=== PATIENT | female | born 1995 | race African-American/Black ===

== ENCOUNTER 2023-07-30 10:54 | Emergency (ER) | payer MEDICAID ==
[~2023-07-30] VITALS: Ht 167.6 cm; Wt 91.0 kg
[2023-07-30 11:09] VITALS: BP 123/75; PULSE 75; RESP 18; TEMP 98.2; O2SAT 100
[2023-07-30 12:06] LABS: BASOPHILS % 0.6 % (0.0-2.0); EOSINOPHILS % 1.5 % (0.0-5.0); HEMATOCRIT. 28.6 % (36.0-48.0); HEMOGLOBIN. 9.1 g/dL (12.0-16.0); LYMPHOCYTES % 26.5 % (20.0-50.0); MEAN CORPUSCULAR HEMOGLOBIN 26.3 pg (28.0-32.0); MEAN CORPUSCULAR VOLUME 82.3 fL (81.0-99.0); MEAN PLATELET VOLUME 8.7 fl (7.4-10.4); MONOCYTES % 6.9 % (2.0-8.0); NEUTROPHILS % 64.5 % (40.0-76.0); PLATELET 308 x1000/uL (130-400); RED BLOOD CELL COUNT 3.47 mill/uL (4.2-5.4); RED CELL DISTRIBUTION WIDTH 17.7 % (11.6-14.6); WHITE BLOOD COUNT 6.8 x1000/uL (4.5-11.0)
[2023-07-30 12:37] LABS: CHLORIDE 112 mEq/L (98-107); INDEX HEMOLYSI 1 (1-3); INDEX ICTERIC 1 (1-4); INDEX LIPEMIC 1 (1-3); POTASSIUM 3.9 mEq/L (3.5-5.1); SODIUM 142 mEq/L (136-145)
[2023-07-30 12:44] LABS: ALANINE AMINOTRANSFERASE 22 IU/L (13-61); ALBUMIN 3.7 g/dL (3.4-5.0); ASPARTATE AMINOTRANSFERASE 17 IU/L (15-37); BILIRUBIN TOTAL 0.5 mg/dL (0.1-1.0); CALCIUM 8.6 mg/dL (8.5-10.1); CARBON DIOXIDE 27 mEq/L (21-32); CREATINE KINASE 79 IU/L (26-192); CREATININE 0.7 mg/dL (0.6-1.3); GLUCOSE 91 mg/dL (70-105); PROTEIN TOTAL 7.9 g/dL (6.0-8.3); UREA NITROGEN BLOOD 9 mg/dL (7-21)
[2023-07-30 13:04] LABS: HCG SCREEN NEGATIVE
== END 2023-07-30 13:36 | disposition home or self-care (01) ==
LOC: ER 10:54
DX: M79.604 Pain in right leg (principal)
CPT/HCPCS: 36415; 80053; 81025; 82550; 84703; 85025; 99283